=== PATIENT | male | born 1970 | race American Indian/Alaskan Native ===

== ENCOUNTER 2020-03-03 07:58 | Outpatient (CLI) | payer OTHER ==
--- NOTE | 2020-03-03 10:32 | Nuclear Medicine Report ---
NUCLEAR MEDICINE GASTRIC EMPTYING STUDY, SOLID PHASE INDICATION / CLINICAL INFORMATION: GASTROPARESIS. TECHNIQUE: 1 mCi of Tc-99m sulfur colloid meal (oatmeal) was given to the patient by mouth. Images were obtained over the stomach over the course of 1 hours. COMPARISON: No relevant prior imaging study available. FINDINGS: The following % EMPTIED is noted for the following time periods: The stomach began emptying at 4 minutes. Time to half emptying is 33 minutes. There is 91% emptying a t 60 minutes. ADDITIONAL FINDINGS: None. IMPRESSION: 1. Normal gastric emptying. Signer Name: Lang Sanchez MD Signed: 03/03/2020 10:28 AM Workstation Name: [email or web address]
== END 2020-03-03 07:59 | disposition home or self-care (01) ==
LOC: NM 07:58
PROVIDERS: ATTEND Internal Medicine
DX: K31.84 Gastroparesis (principal)
CPT/HCPCS: 78264; A9541